=== PATIENT | female | born 1955 | race Caucasian/White ===

== ENCOUNTER → 2017-03-13 | Outpatient (CLI) | payer BC ==
[~2017-03-13] MED LIST: ALLERGY10 M1 PO; CALCIUM 500+D1 EAC2 PO; CLARITIN10 MG PO; HAIR, SKIN & N1 EAC1 PO; HM FISH OIL 1,1 EACH PO; L-LYSINE500 M1 PO; PREMARIN0.45 MG PO; ULTRAM 50MG TAB50 MG PO
== END ==
LOC: RAD 14:04
DX: M54.5 Low back pain (principal)

== ENCOUNTER → 2017-05-24 | Outpatient (CLI) | payer BC, OTHER ==
[2017-05-24 11:41] LABS: CREATININE 0.8 mg/dL (0.6-1.0)
== END ==
LOC: CAT 11:00 → LABMALL 11:00
PROVIDERS: Family Medicine
DX: R10.9 Unspecified abdominal pain (principal)